=== PATIENT | female | born 1980 | race Caucasian/White ===

== ENCOUNTER 2020-09-03 | Emergency (ER) | payer OTHER ==
[2020-09-03] MEDS ORDERED: AMOXICILLIN500 MG PO (13:14)
== END 2020-09-03 13:36 | disposition home or self-care (01) ==
DX: S41.111A Laceration without foreign body of right upper arm, initial encounter (principal); B19.20 Unspecified viral hepatitis C without hepatic coma; W10.9XXA Fall (on) (from) unspecified stairs and steps, initial encounter; Y92.009 Unspecified place in unspecified non-institutional (private) residence as the place of occurrence of the external cause

== ENCOUNTER 2020-09-12 10:30 | Emergency (ER) | payer OTHER ==
[~2020-09-12 10:30] MED LIST: AMOXICILLIN500 MG PO
[2020-09-12 11:50] VITALS: BP 123/79
== END 2020-09-12 11:50 | disposition home or self-care (01) ==
LOC: ED 10:30
DX: S41.111D Laceration without foreign body of right upper arm, subsequent encounter (principal); X58.XXXD Exposure to other specified factors, subsequent encounter